=== PATIENT | male | born 1975 | race Caucasian/White ===

== ENCOUNTER → 2023-07-28 | Emergency (ER) | payer SELFPAY ==
[~2023-07-28] MED LIST: TDAP (DIPHTH,PERTUSS(ACELL),TET VAC) 0.5 ML VIAL IMVAC ONE
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
[2023-07-28 19:00] VITALS: BP 111/68; TEMP 98.5; O2SAT 99
== END ==
LOC: ER 14:46
DX: S01.81XA Laceration without foreign body of other part of head, initial encounter (principal); S30.0XXA Contusion of lower back and pelvis, initial encounter
CPT/HCPCS: 70450; 71260; 72125; 74177; 82565; Q9967